=== PATIENT | female | born 1965 | race Two or more races ===

== ENCOUNTER 2016-05-03 03:45 | Emergency (ER) | payer SELFPAY ==
[2016-05-03] MEDS ORDERED: IBUPROFEN 800 MG TABLET ONE (04:26)
== END 2016-05-03 05:05 | disposition home or self-care (01) ==
LOC: ED 03:45
DX: G89.29 Other chronic pain (principal); M54.6 Pain in thoracic spine; E11.9 Type 2 diabetes mellitus without complications; Z79.84 Long term (current) use of oral hypoglycemic drugs
CPT/HCPCS: 99282 ×2; A9270